=== PATIENT | male | born 1950 | race Caucasian/White ===

== ENCOUNTER 2020-06-25 12:16 | Observation (INO) ==
[2020-06-25] MEDS ORDERED: ASPIRIN 325 MG TABLET PO STA (12:58)
[2020-06-25 13:05] LABS: Basophils % 0.4 % (0.0-0.8); Eosinophils # 0.3 10*3/uL (0.0-0.87); Eosinophils % 3.8 % (0.00-10.9); Hematocrit 35.9 VOL% (42.0-52.0); Hemoglobin 11.2 GM/DL (14.0-18.0); Immature Granulocytes % 0.5 %; Immature Granulocytes Absolute 0.04 #; Lymphocytes # 1.6 10*3/uL (1.4-4.0); Lymphocytes % 18.3 % (21.2-54.2); Mean Corpuscular HGB Conc 31.2 GM/DL (32-36); Mean Corpuscular Volume 91.6 FL (87-102); Mean Platelet Volume 11.1 FL (9.6-12.0); Monocytes % 1.6 % (1.7-12.7); Neutrophils % 75.4 % (38.7-73.9); Platelet Count 194 T/CUMM (130-400); Red Blood Count 3.92 MC/CUMM (3.8-5.5); Red Cell Distribution Width 19.5 % (9.3-17.3); White Blood Count 8.5 T/CUMM (4-12)
[2020-06-25 13:14] LABS: INR 1.1; PT Patient Result 12.1 SECS (10.5-12.0); Partial Thromboplastin Time 25.1 SECS (23.9-33.8)
[2020-06-25 13:15] LABS: Calcium 8.8 MG/DL (8.5-10.1); Osmolality,Calculated 275.8 MOS/KG (273-304); Potassium 3.9 MMOL/L (3.5-5.1)
[2020-06-25] MEDS ORDERED: CLORAZEPATE 7.5 MG TABLET PO PRN (14:59)
[2020-06-25] MEDS ORDERED: ALBUTEROL 2.5 MG/3 ML NEB RESP TX PRN (14:59)
[2020-06-25] MEDS ORDERED: ONDANSETRON ODT 4 MG TABLET PO PRN (14:59)
[2020-06-25] MEDS ORDERED: PROCHLORPERAZINE 10 MG TABLET PO PRN (14:59)
[2020-06-25] MEDS ORDERED: NITROGLYCERIN SL 0.4 MG TABLET SL PRN (14:59)
[2020-06-25] MEDS ORDERED: DEXTROSE 50% 25 GM/50 ML VIAL IV PRN (15:00)
[2020-06-25] MEDS ORDERED: ONDANSETRON 4 MG/2 ML VIAL IV PRN (15:00)
[2020-06-25] MEDS ORDERED: GLUCAGON 1 MG VIAL IM PRN (15:00)
[2020-06-25] MEDS ORDERED: ACETAMINOPHEN 325 MG TABLET PO PRN (15:00)
[2020-06-25] MEDS: GABAPENTIN 100 MG CAPSULE PO SCH ×2 (16:05→20:20)
[2020-06-26 05:15] LABS: Basophils % 0.4 % (0.0-0.8); Eosinophils # 0.3 10*3/uL (0.0-0.87); Eosinophils % 6.2 % (0.00-10.9); Hematocrit 30.4 VOL% (42.0-52.0); Immature Granulocytes % 0.2 %; Immature Granulocytes Absolute 0.01 #; Lymphocytes # 1.4 10*3/uL (1.4-4.0); Lymphocytes % 31.5 % (21.2-54.2); Mean Corpuscular HGB Conc 32.9 GM/DL (32-36); Mean Corpuscular Volume 88.9 FL (87-102); Mean Platelet Volume 10.7 FL (9.6-12.0); Monocytes % 2.2 % (1.7-12.7); Neutrophils % 59.5 % (38.7-73.9); Platelet Count 142 T/CUMM (130-400); Red Blood Count 3.42 MC/CUMM (3.8-5.5); White Blood Count 4.5 T/CUMM (4-12)
[2020-06-26 05:37] LABS: Albumin 2.4 G/DL (3.4-5.0); Bilirubin,Total 0.7 MG/DL (0.2-1.0); Calcium 8.5 MG/DL (8.5-10.1); Osmolality,Calculated 281.5 MOS/KG (273-304); Potassium 3.8 MMOL/L (3.5-5.1); Total Protein 5.9 G/DL (6.4-8.2)
[2020-06-26 05:38] LABS: Eosinophils 5 % (0-10); Hypochromasia 1+; Lymphocytes 34 % (20-55); Microcytosis 1+; Platelet Estimate Adequate; Segmented Neutrophils 60 % (50-85); Total Cells Counted 100
[2020-06-26] MEDS: GABAPENTIN 100 MG CAPSULE PO SCH (08:39)
[2020-06-26] MEDS ORDERED: PANTOPRAZOLE 40 MG TABLET PO SCH (09:00)
[2020-06-26] MEDS ORDERED: ASPIRIN 325 MG TABLET PO SCH (09:00)
[2020-06-26] MEDS ORDERED: CETIRIZINE 10 MG TABLET PO SCH (09:00)
[2020-06-26] MEDS ORDERED: CITALOPRAM 20 MG TABLET PO SCH (09:00)
[2020-06-26] MEDS ORDERED: CLOPIDOGREL 75 MG TABLET PO SCH (09:00)
[2020-06-26] MEDS ORDERED: ATORVASTATIN 40 MG TABLET PO SCH (09:00)
[2020-06-26 12:08] VITALS: BP 105/60
== END 2020-06-26 14:05 | disposition home or self-care (01) ==
LOC: N.ED 12:16 → N.EDINP 12:16 → SUATTDRO 15:00 → N.4E 17:03
PROVIDERS: ADMIT Internal Medicine; ATTEND Emergency Medicine